=== PATIENT | male | born 1980 | race Two or more races ===

== ENCOUNTER 2020-11-25 20:32 | Emergency (ER) | payer SELFPAY ==
[~2020-11-25] VITALS: Ht 172.7 cm; Wt 61.0 kg
[2020-11-25 20:50] VITALS: BP 136/77
== END 2020-11-25 21:27 | disposition home or self-care (01) ==
LOC: ED 21:00
DX: R45.851 Suicidal ideations (principal); Z72.9 Problem related to lifestyle, unspecified; F17.210 Nicotine dependence, cigarettes, uncomplicated
CPT/HCPCS: 99285; 99406